=== PATIENT | male | born 2005 | race Caucasian/White ===

== ENCOUNTER 2024-04-15 12:58 | Emergency (ER) | payer BC, SELFPAY ==
[2024-04-15] VITALS (7 sets, daily range): BP systolic 126–138; BP diastolic 61–81; PULSE 77–95; RESP 14–18; TEMP 38; O2SAT 96–99; BMI 23.5
--- NOTE | 2024-04-15 13:21 | ED.GENADULT ---
HPI - General Adult General Time Seen by Provider: 13:21 Date Seen: 04/15/24 Chief complaint: Weakness Stated complaint: Strep, dehydration Time Seen by Provider: 04/15/24 13:07 Source: patient, family and RN notes reviewed Mode of arrival: ambulatory Limitations: no limitations History of Present Illness HPI narrative: This 18-year-old male is coming in accompanied by his mom with concern of ongoing issues with strep diagnosis. He has been sick for 4 days, was running fevers and had a severe headache at the onset of his symptoms. His sore throat really has been minimal. He went to urgent care in [place] 2 days ago, his rapid strep was negative but a day later his strep culture came back positive. He was started on antibiotics yesterday with Pen-VK 500 mg p.o. b.i.d.. He has taken 3 doses. He is drinking but just has no appetite for solids. He has ongoing fevers and sweats. He feels foggy and weak. His mom wonders about being dehydrated in eating fluids. He denies any hematuria. He has not noted a rash. He has no abdominal pain. He was told his white count was normal at urgent care and he had a negative mono spot, platelets were maybe mildly low at 103,000. Related Data Home Medications ?Medication ?Instructions ?Recorded ?Confirmed penicillin V potassium 500 mg 500 mg PO BID 04/15/24 04/15/24 tablet Allergies Allergy/AdvReac Type Severity Reaction Status Date / Time No Known Drug Allergies Allergy Verified 04/15/24 13:13 Review of Systems Status of ROS: Reports: 6 or more systems reviewed and unremarkable except as noted in History and below PFSH PFS Social History Smoking Status: Never smoker Do you use any of these nicotine containing products: None Second hand tobacco smoke exposure: No How often do you have a drink containing alcohol: never AUDIT-C Alcohol total score: 0 Non-prescribed substance use: denies use Exam Const: Vital Signs, click to edit/add: Vital Signs - 24 hr 04/15/24 13:05 04/15/24 13:27 Temperature 100.4 F H Pulse Rate [Pulse Oximeter] 95 Respiratory Rate 16 Blood Pressure [Ri ght Upper Arm] 126/81 Pulse Oximetry 99 99 Oxygen Delivery Me thod Room Air 18-year-old male is alert, interactive, no apparent distress. He had a hooded sweatshirt on with the knox up over his head. Pupils are equal round reactive, sclera clear. TMs canals are normal. Oropharynx with minimal tonsillar tissue that it has got some mild erythema but no exudates, no palatal petechiae. Oral mucosa is well hydrated. His voice is normal, no hoarseness. Neck is supple without any adenopathy. Lungs are clear, good air entry, no wheezing or crackles. CV regular rate and rhythm, no murmur, normal S1-S2, no S3-S4. Abdomen is soft, no organomegaly, no rebound or guarding, nontender. Documenting provider has reviewed patient's vital signs: yes Course Course ED Course: We will stab lesion IV, give him a L of lactated Ringer's. It is possible there is a component of dehydration with his symptoms. We will recheck blood work, make sure that his labs are showing no concerning changes. We will recheck a mono spot. Did discuss the possibility of just doing injectable IM penicillin. We can discuss treatment further once we have his labs back and see how he is doing. He does not need any neck imaging, really is not having any significant throat pain. Reevaluation(s) Time of Reevaluation #1: 14:24 Reevaluation #1: Reviewed with patient and his mom that his liver enzymes with AST and ALT are mildly up indicating hepatitis. His platelet count is still mildly low but has rebounded back up to 122,000. He has a normal white blood count. His C-reactive protein is elevated. We will be obtaining a right upper quadrant ultrasound just to ensure no other concerning changes. I will and on labs for viruses that can cause hepatitis. Will do the acute hepatitis panel but it is more likely to be something along the lines of [place] virus or CMV. His Monospot is still negative. We did discuss that it can take a while for the Monospot turn positive from [place] virus. His anorexia is most definitely coming from the hepatitis. 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 He is going to need to be followed outpatient anyway. Has not needed to urinate after the 1 L of fluids, will give a 2 L of fluids while he is awaiting his ultrasound. Time of Reevaluation #2: 16:31 Reevaluation #2: Patient is overall feeling a bit better. We discussed that it may take a while for all of his symptoms to resolve. We are still awaiting his formal ultrasound read but the preliminary is without any concerns from the embossing calender operator. He does want injectable penicillin, will give him the IM penicillin and he can stop his oral antibiotic. The understand that this may not make all of his symptoms resolve as I do feel he has a concomitant virus. I will certainly let them know if the ultrasound has any significant discrepancy once read by the radiologist. Vital Signs Vital signs: Initial Vital Signs Temperature 100.4 F H 04/15/24 13:05 Temperature Source Temporal Artery Scan 04/15/24 13:05 Pulse Rate 95 04/15/24 13:05 Respiratory Rate 16 04/15/24 13:05 Blood Pressure 126/81 04/15/24 13:05 Blood Pressure Mean 96 04/15/24 13:05 Blood Pressure Position Sitting 04/15/24 13:05 Pulse Oximetry 99 04/15/24 13:05 Oxygen Delivery Method Room Air 04/15/24 13:05 Vital Signs Temperature 100.4 F H 04/15/24 13:05 Pulse Rate 95 04/15/24 13:05 Respiratory Rate 16 04/15/24 13:05 Blood Pressure 126/81 04/15/24 13:05 Pulse Oximetry 99 04/15/24 13:05 Oxygen Delivery Method Room Air 04/15/24 13:05 Temperature 100.4 F H 04/15/24 13:05 Pulse Rate 95 04/15/24 13:05 Respiratory Rate 16 04/15/24 13:05 Blood Pressure 126/81 04/15/24 13:05 Pulse Oximetry 99 04/15/24 13:27 Oxygen Delivery Method Room Air 04/15/24 13:05 Medications Administered Medications: Discontinued Medications Generic Name Dose Route Start Last Admin Trade Name Freq PRN Reason Stop Dose Admin Lactated Ringer's 1,000 mls @ 1,000 mls/hr 04/15/24 13:27 04/15/24 14:58 Lactated Ringers 1000 Ml IV 04/15/24 14:26 Infused .Q1H ONE Infusion Lactated Ringer's 1,000 mls @ 1,000 mls/hr 04/15/24 14:24 04/15/24 16:05 Lactated Ringers 1000 Ml IV 04/15/24 15:23 Infused .Q1H ONE Infusion Medical Decision Making Lab Data Lab results reviewed: Yes I reviewed the patient's lab results Labs: Lab Results 04/15/24 Range/Units 13:40 WBC 6.42 (4.50-11.00) K/uL RBC 4.98 (4.30-5.90) m/uL Hgb 15.0 (13.5-17.5) gm/dL Hct 42.6 (37.0-53.0) % MCV 86 (80-100) fL MCH 30 (26-34) pg MCHC 35 (32-36) gm/dL RDW Coeff of Len 11.6 (11.5-15.5) % Plt Count 121 L (140-440) K/uL Neut % (Auto) 63.6 (42.0-72.0) % Lymph % (Auto) 19.9 L (20-44) % [place] % (Auto) 15.9 H (0.0-11.0) % Eos % (Auto) 0.0 (0.0-7.0) % Baso % (Auto) 0.3 (0.0-3.0) % Neut # (Auto) 4.08 (1.7-7.0) K/uL Lymph # (Auto) 1.30 (0.90-2.90) K/uL [place] # (Auto) 1.00 H (0.00-0.90) K/UL Eos # (Auto) 0.00 (0.00-0.50) K/uL Baso # (Auto) 0.02 (0.00-0.30) K/uL Abs Immat Gran (auto) 0.02 (0.00-0.30) K/uL Imm/Tot Granulo (auto) 0.3 % Sodium 131 L (135-149) mmol/L Potassium 4.6 (3.6-5.1) mmol/L Chloride 96 (96-114) mmol/L Carbon Dioxide 29 (20-32) mmol/L Anion Gap 6 L (7-15) mEq/L BUN 21 (5-24) mg/dL Creatinine 1.1 (0.5-1.5) mg/dL Estimated Creat Clear 121.06 Estimated GFR 99 ml/min Glucose 103 (60-115) mg/dL Lactate 1.2 (0.5-1.9) mmol/L Calcium 8.6 (8.4-10.6) mg/dL Total Bilirubin 1.1 (0.1-1.5) mg/dL AST 276 H (12-35) U/L ALT 315 H (4-50) U/L Alkaline Phosphatase 40 (40-150) U/L C-Reactive Protein 7.0 H (0.5-1.0) mg/dL Total Protein 7.6 (6.0-8.3) g/dL Albumin 4.7 (3.3-5.0) g/dL Monoscreen Negative (Negative) Imaging Data US - abdomen: Attestation: I have reviewed the pertinent imaging results. Radiologist's impression: Patient: KIMBERLY MCDONALD Facility:?[facility] Patient ID:?[id number] Site Patient ID:?[id number]. Site :?[id number] Study:?US-Abdomen/Pelvis -04/15/2024 3:50:09 PM Ordering Physician:Ana Paula Mora Final Report: INDICATION: Abnormal liver function tests; patient is dehydrated. COMPARISON: None. TECHNIQUE: Ultrasound examination of the upper quadrant of the abdomen. FINDINGS: Liver is measuring 16.2 cm in the maximum vertical dimension. No focal hepatic pathology. No evidence of gallstones. No pericholecystic fluid collections. Negative sonographic Howe sign. Nondilated common bile duct measuring 2.4 mm in diameter. No pancreatic pathology. Right kidney measures 12.1 x 6.1 x 6.1 cm. No obstructive uropathy or perinephric pathology. Proximal abdominal aorta measures 1.6 cm. IMPRESSION: Normal ultrasound examination of the right upper quadrant of the abdomen. Dictated by Darlin Ortega MD @ 04/15/2024 4:31:08 PM (Electronic Signature) Discharge Plan Discharge Clinical Impression: Hepatitis, Strep throat Patient Disposition: Home, Self-Care Condition: Stable Instructions: Strep Throat (ED) Additional Instructions: Stop oral penicillin. The injectable penicillin you received today should cover you for the full course of treatment. Continue with Tylenol and ibuprofen per bottle directions as needed for pain management. May want to limit the Tylenol to 2000 mg a day at this time due to the liver inflammation. Need to have your liver enzymes recheck next week, schedule clinic appointment. We will let you know if any of the pending blood work point to any specific etiology. Should you start having increasing abdominal pain, vomiting, worsening fever pattern associated with abdominal pain or vomiting, do need to follow-up and it be re-evaluated. The liver inflammation is most likely coming from a concomitant virus. The liver inflammation is generically called hepatitis. Your appetite will improve as you feel better. Is important that you follow up in clinic and have the liver enzymes followed. (Note the US was read as normal just prior to discharge) Activity Level: Activity as Tolerated Discharge Diet: Regular Prescriptions: No Action penicillin V potassium 500 mg tablet 500 mg PO BID Follow Up/Referrals: Dada Gastelum MD [Primary Care Provider] - Stand Alone Forms: Playful Data Info Instructions
[2024-04-15] MEDS: LACTATED RINGERS 1000 ML 1,000 ML IV ×2 (13:44→14:58)
[2024-04-15 13:46] LABS: Lactate* 1.2 mmol/L (0.5-1.9)
[2024-04-15 13:50] LABS: Basophils Absolute Auto 0.02 K/uL (0.00-0.30); Basophils Percent Auto 0.3 % (0.0-3.0); Hematocrit 42.6 % (37.0-53.0); Immature Granulocytes Abs Auto 0.02 K/uL (0.00-0.30); Immature Granulocytes Pct Auto 0.3 %; Lymphocytes Percent Auto 19.9 % (20-44); Mean Corpuscular HGB Conc 35 gm/dL (32-36); Mean Corpuscular Hemoglobin 30 pg (26-34); Mean Corpuscular Volume 86 fL (80-100); Monocytes Percent Auto 15.9 % (0.0-11.0); Neutrophils Absolute Auto 4.08 K/uL (1.7-7.0); Neutrophils Percent Auto 63.6 % (42.0-72.0); Platelet Count* 121 K/uL (140-440); RDW Coefficient of Variation % 11.6 % (11.5-15.5); Red Blood Count 4.98 m/uL (4.30-5.90); White Blood Count* 6.42 K/uL (4.50-11.00)
[2024-04-15 13:53] LABS: Slide Review Reflex No
[2024-04-15 14:03] LABS: Mono Screen* Negative (Negative)
[2024-04-15 14:04] LABS: Albumin* 4.7 g/dL (3.3-5.0); Chloride* 96 mmol/L (96-114); Potassium* 4.6 mmol/L (3.6-5.1); Sodium* 131 mmol/L (135-149)
[2024-04-15 14:07] LABS: Alanine Aminotransferase* 315 U/L (4-50); Alkaline Phosphatase* 40 U/L (40-150); Anion Gap 6 mEq/L (7-15); Aspartate Amino Transferase* 276 U/L (12-35); Bilirubin Total* 1.1 mg/dL (0.1-1.5); Blood Urea Nitrogen* 21 mg/dL (5-24); Carbon Dioxide* 29 mmol/L (20-32); Creatinine* 1.1 mg/dL (0.5-1.5); Est. Creatinine Clearance* 121.06; Estimated Glomerular Filt Rate 99 ml/min; Glucose* 103 mg/dL (60-115); Total Protein* 7.6 g/dL (6.0-8.3)
[2024-04-15 14:08] LABS: Calcium* 8.6 mg/dL (8.4-10.6)
--- NOTE | 2024-04-15 14:17 | CRLHL7_ITS ---
For Patients: As a result of the Century Cures Act, medical imaging exams and procedure reports are released immediately into your electronic medical record. You may view this report before your referring provider. If you have questions, please contact your health care provider. INDICATION: Abnormal liver function tests; patient is dehydrated. COMPARISON: None. TECHNIQUE: Ultrasound examination of the upper quadrant of the abdomen. FINDINGS: Liver is measuring 16.2 cm in the maximum vertical dimension. No focal hepatic pathology. No evidence of gallstones. No pericholecystic fluid collections. Negative sonographic Howe sign. Nondilated common bile duct measuring 2.4 mm in diameter. No pancreatic pathology. Right kidney measures 12.1 x 6.1 x 6.1 cm. No obstructive uropathy or perinephric pathology. Proximal abdominal aorta measures 1.6 cm. IMPRESSION: Normal ultrasound examination of the right upper quadrant of the abdomen. Dictated by Darlin Ortega MD @ 04/15/2024 4:31:08 PM (Electronically Signed)
[2024-04-15] MEDS: PENICILLIN G BENZATHINE 1,200,000 UNIT/2 ML inj 1200000 UNIT IM (16:46)
[2024-04-18 14:38] LABS: Hep A Ab, IgM Negative (Negative); Hep B Core Ab, IgM Negative (Negative); Hep B Surface Antigen Negative (Negative); Hep C Ab by CIA Index 0.05 IV; Hep C Ab by CIA Interp Negative (Negative)
[2024-04-18 15:56] LABS: EBV Antibody-Early (D)Ag IgG <5.0 U/mL (0.0-10.9)
[2024-04-18 16:06] LABS: CMV Antibody IgM <8.0 AU/mL (<=29.9)
== END 2024-04-15 16:52 | disposition home or self-care (01) ==
PROVIDERS: Emergency Provider Family Medicine; PCP Family Medicine
DX: J02.0 Streptococcal pharyngitis (principal); K75.9 Inflammatory liver disease, unspecified
CPT/HCPCS: 36415; 76705; 80053; 80074; 83605; 85025; 86140; 86308; 86644; 86645; 86663; 94761; 96372; 99284; J0561; J7120